=== PATIENT | female | born 1980 | race Caucasian/White ===

== ENCOUNTER 2022-01-14 10:30 | Outpatient (CLI) | payer BC, SELFPAY ==
[2022-01-14 13:02] LABS: Cholesterol* 196 mg/dL (90-199)
[2022-01-14 13:03] LABS: Glucose* 85 mg/dL (60-115); HDL Cholesterol* 94 mg/dL (>=50); LDL Cholesterol Calculated 91 mg/dL (<100); Triglycerides* 55 mg/dL (40-149)
== END 2022-01-14 10:31 | disposition home or self-care (01) ==
PROVIDERS: Visit Provider Physician Assistant
DX: Z01.419 Encounter for gynecological examination (general) (routine) without abnormal findings (principal); Z13.6 Encounter for screening for cardiovascular disorders; Z13.1 Encounter for screening for diabetes mellitus
CPT/HCPCS: 80061; 82947